=== PATIENT | female | born 1955 | race Two or more races ===

== ENCOUNTER 2017-11-27 10:07 | Outpatient (CLI) | payer OTHER | END 2017-11-27 10:08 | disposition home or self-care (01) | LOC: LAB 10:07 | DX: J11.1 Influenza due to unidentified influenza virus with other respiratory manifestations (principal); R50.9 Fever, unspecified ==

== ENCOUNTER → 2017-11-27 | Outpatient (CLI) | payer OTHER ==
[~2017-11-27] VITALS: Ht 152.4 cm; Wt 80.7 kg
[~2017-11-27] MED LIST: FLONASE16 GM NASAL; FLOVENT 220MCG7.9 GM; FLOVENT 220MCG7.9 GM IH; FLOVENT DISKU250 MCG; FLOVENT DISKU250 MCG NS; FLOVENT HFA10.6 GM IH; HYZAAR 100-121 UDTAB; HYZAAR 100-121 UDTAB PO; HYZAAR 100/25 T1 TAB PO; HYZAAR 50-12.51 EACH PO; HYZAAR 50/12.51 TAB PO; KETO10TA2 PO; LOTRISONE CREAM45 GM TP; MEDROLPACK PO; MOTRIN800 MG PO; ORPH100T PO; PERCOCET 5/3251 TAB PO; PROTONIX20 MG PO; PROTONIX40 M1; PROVENTIL HFA6.7 GM IH; SINGULAIR 10MG10 MG; SINGULAIR10 MG; SINGULAIR10 MG PO; TUSSI PRES-B L120 M1 PO; ZITHROMAX TRI-500 MG PO
== END | disposition home or self-care (01) ==
LOC: PPHC 07:18
DX: R50.9 Fever, unspecified (principal); R11.0 Nausea

== ENCOUNTER → 2017-12-18 06:28 | Outpatient (CLI) | payer OTHER ==
[~2017-12-18 06:28] MED LIST changes: +GABAPENTIN300 MG PO
== END | disposition home or self-care (01) ==
LOC: LAB 06:28
DX: E03.8 Other specified hypothyroidism (principal); E79.0 Hyperuricemia without signs of inflammatory arthritis and tophaceous disease; E11.630 Type 2 diabetes mellitus with periodontal disease; E78.00 Pure hypercholesterolemia, unspecified

== ENCOUNTER 2017-12-22 11:38 | Outpatient (CLI) | payer OTHER | END 2017-12-22 16:17 | disposition home or self-care (01) | LOC: SONOGRAMA 11:38 | DX: E04.1 Nontoxic single thyroid nodule (principal) ==

== ENCOUNTER 2018-01-14 09:14 | Outpatient (CLI) | payer OTHER | END 2018-01-14 09:25 | disposition home or self-care (01) | LOC: SONOGRAMA 09:14 | DX: E04.1 Nontoxic single thyroid nodule (principal) ==

== ENCOUNTER 2018-07-13 07:47 | Outpatient (CLI) | payer OTHER | END 2018-07-13 07:54 | disposition home or self-care (01) | LOC: LAB 07:47 | DX: I10 Essential (primary) hypertension (principal); E11.9 Type 2 diabetes mellitus without complications; Z12.11 Encounter for screening for malignant neoplasm of colon ==

== ENCOUNTER 2018-07-13 08:14 | Outpatient (CLI) | payer OTHER | END 2018-07-13 14:57 | disposition home or self-care (01) | LOC: MAMO-SONO 08:14 | DX: Z12.31 Encounter for screening mammogram for malignant neoplasm of breast (principal) ==

== ENCOUNTER 2018-11-10 08:05 | Outpatient (CLI) | payer OTHER | END 2018-11-10 08:14 | disposition home or self-care (01) | LOC: LAB 08:05 | DX: E11.9 Type 2 diabetes mellitus without complications (principal); I10 Essential (primary) hypertension; E78.4 Other hyperlipidemia ==

== ENCOUNTER 2019-02-17 10:26 | Outpatient (CLI) | payer OTHER | END 2019-02-17 16:21 | disposition home or self-care (01) | LOC: LAB 10:26 | DX: E78.49 Other hyperlipidemia (principal); I10 Essential (primary) hypertension; E03.8 Other specified hypothyroidism; Z00.00 Encounter for general adult medical examination without abnormal findings ==

== ENCOUNTER 2019-06-22 06:59 | Outpatient (CLI) | payer OTHER | END 2019-06-22 07:04 | disposition home or self-care (01) | LOC: LAB 06:59 | DX: E11.9 Type 2 diabetes mellitus without complications (principal); Z00.00 Encounter for general adult medical examination without abnormal findings; E55.9 Vitamin D deficiency, unspecified; I10 Essential (primary) hypertension ==

== ENCOUNTER → 2019-09-22 09:52 | Outpatient (CLI) | payer OTHER | END | disposition home or self-care (01) | LOC: LAB 09:52 | DX: E11.65 Type 2 diabetes mellitus with hyperglycemia (principal); E78.00 Pure hypercholesterolemia, unspecified ==

== ENCOUNTER 2019-11-14 13:19 | Outpatient (CLI) | payer OTHER | END 2019-11-14 13:24 | disposition home or self-care (01) | LOC: NUCLEAR 13:19 | DX: I11.9 Hypertensive heart disease without heart failure (principal); M15.0 Primary generalized (osteo)arthritis; M81.0 Age-related osteoporosis without current pathological fracture ==

== ENCOUNTER 2019-12-14 08:45 | Outpatient (CLI) | payer OTHER | END 2019-12-14 08:57 | disposition home or self-care (01) | LOC: MAMO-SONO 08:45 | DX: Z12.31 Encounter for screening mammogram for malignant neoplasm of breast (principal); Z87.898 Personal history of other specified conditions; C50.919 Malignant neoplasm of unspecified site of unspecified female breast; N63.10 Unspecified lump in the right breast, unspecified quadrant; N63.20 Unspecified lump in the left breast, unspecified quadrant; N64.4 Mastodynia; N60.12 Diffuse cystic mastopathy of left breast; N60.11 Diffuse cystic mastopathy of right breast; I11.9 Hypertensive heart disease without heart failure; R06.02 Shortness of breath ==

== ENCOUNTER → 2020-06-13 08:07 | Outpatient (CLI) | payer OTHER | END | disposition home or self-care (01) | LOC: LAB 08:07 | PROVIDERS: ATTEND Internal Medicine Geriatric Medicine | DX: D68.8 Other specified coagulation defects (principal); Z20.828 Contact with and (suspected) exposure to other viral communicable diseases; M17.12 Unilateral primary osteoarthritis, left knee; D50.8 Other iron deficiency anemias; E03.8 Other specified hypothyroidism; E78.2 Mixed hyperlipidemia; I11.9 Hypertensive heart disease without heart failure; E56.8 Deficiency of other vitamins; N39.0 Urinary tract infection, site not specified; Z12.11 Encounter for screening for malignant neoplasm of colon; E55.9 Vitamin D deficiency, unspecified; N19 Unspecified kidney failure; E11.9 Type 2 diabetes mellitus without complications; R80.8 Other proteinuria; C18.0 Malignant neoplasm of cecum; K92.1 Melena ==

== ENCOUNTER 2021-12-02 10:58 | Outpatient (CLI) | payer OTHER | END 2021-12-02 11:12 | disposition home or self-care (01) | LOC: MAMO-SONO 10:58 | PROVIDERS: ATTEND Internal Medicine Geriatric Medicine | DX: Z12.31 Encounter for screening mammogram for malignant neoplasm of breast (principal); C50.919 Malignant neoplasm of unspecified site of unspecified female breast; N63.0 Unspecified lump in unspecified breast; N60.12 Diffuse cystic mastopathy of left breast; N60.11 Diffuse cystic mastopathy of right breast ==

== ENCOUNTER 2021-12-18 11:38 | Outpatient (CLI) | payer OTHER | END 2021-12-18 11:45 | disposition home or self-care (01) | LOC: RAD 11:38 | PROVIDERS: ATTEND Orthopaedic Surgery | DX: M19.90 Unspecified osteoarthritis, unspecified site (principal) ==

== ENCOUNTER 2023-05-19 11:55 | Outpatient (CLI) | payer OTHER | END 2023-05-19 12:08 | disposition home or self-care (01) | LOC: LAB 11:55 | PROVIDERS: ATTEND Internal Medicine Hematology & Oncology | DX: D51.1 Vitamin B12 deficiency anemia due to selective vitamin B12 malabsorption with proteinuria (principal); D51.3 Other dietary vitamin B12 deficiency anemia; I10 Essential (primary) hypertension; E11.8 Type 2 diabetes mellitus with unspecified complications; J45.998 Other asthma; E78.2 Mixed hyperlipidemia ==

== ENCOUNTER 2023-12-28 08:32 | Outpatient (CLI) | payer OTHER | END 2023-12-28 08:34 | disposition home or self-care (01) | LOC: SONOGRAMA 08:32 | PROVIDERS: ATTEND Pathology Anatomic Pathology | DX: D34 Benign neoplasm of thyroid gland (principal); E07.89 Other specified disorders of thyroid; E06.3 Autoimmune thyroiditis ==

== ENCOUNTER 2025-06-29 12:33 | Emergency (ER) | payer OTHER ==
[~2025-06-29] VITALS: Ht 157.5 cm; Wt 86.6 kg
[2025-06-29] MEDS ORDERED: ATACAND HCT 161 EACH PO (13:21)
[2025-06-29 13:22] VITALS: BP 132/78; O2SAT 99
[2025-06-29] MEDS ORDERED: LIPOFEN50 MG PO (13:22)
[2025-06-29] MEDS ORDERED: METFORMIN HCL750 MG PO (13:22)
[2025-06-29] MEDS ORDERED: 0.9 % SODIUM CHLORIDE 1,000 ML IV STA (14:13)
[2025-06-29] MEDS ORDERED: ONDANSETRON HCL 2 MG/ML VIAL IV STA (14:14)
[2025-06-29] MEDS ORDERED: ONDANSETRON HCL 2 MG/ML VIAL ONE (14:21)
[2025-06-29 15:02] LABS: BASO % 0.2 % (0.1-1.2); EOS # 0.00 (0.04-0.54); EOS % 0.0 % (0.7-7.0); LYMPH # 1.04 (1.18-3.74); LYMPH % 11.8 % (19.3-53.1); MEAN PLATELET VOLUME 10.30 fl (9.4-12.4); MONO # 0.59 (0.24-0.82); MONO % 6.7 % (4.7-12.5); NEUT # 7.15 (1.56-6.13); NEUT % 81.0 % (34.0-71.1); RED CELL DISTRIBUTION WIDTH 13.2 % (11.6-14.4)
[2025-06-29 15:20] LABS: BUN CREA RATIO 17.0 (7.0-25.0); CREATININE SERUM 1.03 mg/dL (0.55-1.02); GFR 52.97; GLUCOSE FASTING 112.0 mg/dL (65-100); OSMOLALITY SERUM 275.0 MOSM/KG (275-295)
[2025-06-29 15:45] LABS: BAND MAN 4.0 %; LYMPHOCYTE MAN 17.0 %; MONOCYTE MAN 3.0 %; NEUTROPHILS MAN 76.0 %
[2025-06-29] MEDS ORDERED: HYOSCYAMINE SULFATE 0.125 MG TAB.SUBL ONE (15:57)
[2025-06-29] MEDS ORDERED: FAMOTIDINE/PF 20 MG/2 ML VIAL ONE (15:57)
[2025-06-29] MEDS ORDERED: FAMOTIDINE/PF 20 MG in 0.9 % SODIUM CHLORIDE 8 ML IV PUSH STA (15:59)
[2025-06-29] MEDS ORDERED: HYOSCYAMINE SULFATE 0.125 MG TAB.SUBL SL ONE (16:00)
[2025-06-29 16:18] LABS: URINE APPEARANCE Clear; URINE BILIRRUBIN Small (NEGATIVE); URINE BLOOD Trace; URINE COLOR Dark Yellow; URINE GLUCOSE Negative (NEGATIVE); URINE KETONE Trace (NEGATIVE); URINE LEUKOCYTE Trace; URINE NITRATE Positive; URINE PROTEIN 30 (NEGATIVE); URINE UROBILINOGEN 1.0 E.U./dl
[2025-06-29 16:19] LABS: URINE BACTERIA 3230.0 uL (0.0-1933); URINE EPITHELIAL CELLS 11.9 uL (0.0-38.8); URINE RBC 72.7 uL (0.0-20.8); URINE WBC 11.0 uL (0.0-23.2)
[2025-06-29 16:25] LABS: URINE CAST 0.43 uL (0.0-1.40)
[2025-06-29] MEDS ORDERED: CIPRO500 MG PO (17:20)
[2025-06-29] MEDS ORDERED: METRONIDAZOLE500 MG PO (17:20)
[2025-06-29] MEDS ORDERED: LEVSIN/SL0.125 MG SL (17:20)
[2025-06-29] MEDS ORDERED: PROBIOTIC1 EAC2 PO (17:20)
[2025-06-29] MEDS ORDERED: PEPCID AC20 MG PO (17:20)
[2025-06-29] MEDS ORDERED: KETOROLAC TROMETHAMINE 30 MG VIAL ONE (17:56)
[2025-06-29] MEDS ORDERED: KETOROLAC TROMETHAMINE 30 MG VIAL IV ONE (18:00)
== END 2025-06-29 18:46 | disposition home or self-care (01) ==
LOC: ER 12:44
PROVIDERS: Emergency Medicine
DX: K52.89 Other specified noninfective gastroenteritis and colitis (principal); R10.9 Unspecified abdominal pain; I10 Essential (primary) hypertension; E11.9 Type 2 diabetes mellitus without complications; Z79.84 Long term (current) use of oral hypoglycemic drugs; Z88.6 Allergy status to analgesic agent
CPT/HCPCS: 36415; 96365; 96366; 99282; J1885; J2405; J3490; J7030

== ENCOUNTER 2025-06-30 13:19 | Inpatient (IN) | payer OTHER ==
[~2025-06-30] VITALS: Ht 157.5 cm; Wt 88.0 kg
[~2025-06-30 13:19] MED LIST changes: +ATACAND HCT 161 EACH PO; +CIPRO500 MG PO; +LEVSIN/SL0.125 MG SL; +LIPOFEN50 MG PO; +METFORMIN HCL750 MG PO; +METRONIDAZOLE500 MG PO; +PEPCID AC20 MG PO; +PROBIOTIC1 EAC2 PO
--- NOTE | 2025-06-30 13:27 | NUR ---
PACIENTE MASCULINO, S/V EN PARAMETROS NORMALES, C/C CONVULSIONES, SE UBICA EN CRITICO 1, SE ADMINISTRA MEDICAMENTO POR ORDEN MEDICA, SE MANTIENE EN OBSERCION AREA CRITICO.
--- NOTE | 2025-06-30 13:42 | NUR ---
PTE REFIERE DOLOR ABDOMINAL DIARREAS Y NAUSEAS DESDE RUSH. SE LE YONATHAN S/V Y SE AOMODA EN LISETH .
[2025-06-30] MEDS ORDERED: FAMOTIDINE/PF 20 MG/2 ML VIAL IV ONE (15:00)
[2025-06-30] MEDS ORDERED: 0.9 % SODIUM CHLORIDE 500 ML IV ONE (15:00)
[2025-06-30] MEDS ORDERED: KETOROLAC TROMETHAMINE 30 MG VIAL IV ONE (15:00)
[2025-06-30] MEDS ORDERED: LACTOBACILLUS ACIDOPHILUS 1 CAP CAP PO ONE (15:00)
[2025-06-30] MEDS ORDERED: ONDANSETRON HCL 2 MG/ML VIAL IV ONE (15:00)
--- NOTE | 2025-06-30 15:36 | NUR ---
PTE ALERTA Y ORIENTADA X3. SE REALIZAN MUESTRAS DE LAB KAYLYNN ORDEN MEDICA Y BAJO MEDIDAS ASEPTICAS. SE REALIZA VENOPUNCION Y SE ADMNISTRA MEDICAMENTO KAYLYNN ORDEN MEDICA POR TERI DEL TORO.
[2025-06-30 16:00] LABS: BASO % 0.3 % (0.1-1.2); EOS # 0.01 (0.04-0.54); EOS % 0.1 % (0.7-7.0); LYMPH # 1.06 (1.18-3.74); LYMPH % 15.0 % (19.3-53.1); MEAN PLATELET VOLUME 10.60 fl (9.4-12.4); MONO # 0.60 (0.24-0.82); MONO % 8.5 % (4.7-12.5); NEUT # 5.32 (1.56-6.13); NEUT % 75.5 % (34.0-71.1); RED CELL DISTRIBUTION WIDTH 13.0 % (11.6-14.4)
[2025-06-30 16:03] LABS: INR 1.19
[2025-06-30 16:08] LABS: ALT/SGPT 28.0 U/L (12-78); AST/SGOT 66.0 U/L (15-37); BILIRUBIN TOTAL 0.41 mg/dL (0.3-1.2); BUN CREA RATIO 20.0 (7.0-25.0); CREATININE SERUM 1.28 mg/dL (0.55-1.02); GFR 41.22; GLOBULINA 4.8 G/DL (2.4-3.5); GLUCOSE FASTING 99.0 mg/dL (65-100); OSMOLALITY SERUM 277.0 MOSM/KG (275-295)
[2025-06-30 19:09] LABS: URINE APPEARANCE Clear; URINE BILIRRUBIN Small (NEGATIVE); URINE BLOOD Negative; URINE COLOR Dark Yellow; URINE GLUCOSE Negative (NEGATIVE); URINE KETONE Trace (NEGATIVE); URINE LEUKOCYTE Small; URINE NITRATE Negative; URINE PROTEIN Trace (NEGATIVE); URINE UROBILINOGEN 1.0 E.U./dl
[2025-06-30 19:13] LABS: URINE BACTERIA 71.9 uL (0.0-1933); URINE CAST 1.61 uL (0.0-1.40); URINE EPITHELIAL CELLS 54.9 uL (0.0-38.8); URINE RBC 57.4 uL (0.0-20.8); URINE WBC 53.0 uL (0.0-23.2)
[2025-06-30 19:38] LABS: URINE MUCUS SCANT
[2025-06-30 19:39] LABS: TYPE CELLS SQUAMOUS
[2025-06-30] MEDS ORDERED: CIPROFLOXACIN IN 5 % DEXTROSE 200 ML IV SCH (22:59)
[2025-06-30] MEDS ORDERED: METRONIDAZOLE/SODIUM CHLORIDE 500 MG/100 ML PIGGYBACK IV ONE (23:00)
[2025-06-30] MEDS ORDERED: ONDANSETRON HCL 4 MG in 0.9 % SODIUM CHLORIDE 50 ML IV PRN (23:00)
[2025-06-30] MEDS ORDERED: CIPROFLOXACIN IN 5 % DEXTROSE 400 MG/200 ML PIGGYBAG IV ONE (23:00)
[2025-06-30] MEDS ORDERED: 0.9 % SODIUM CHLORIDE 1,000 ML IV SCH (23:00)
[2025-06-30] MEDS ORDERED: MORPHINE SULFATE 2 MG/ML CARTRIDGE IV PRN (23:15)
[2025-06-30] MEDS ORDERED: DEXTROSE 50 % IN WATER 0.5 G/ML DISP.SYRIN IV PRN (23:15)
[2025-06-30] MEDS ORDERED: INSULIN LISPRO 1,000 UNIT/10 ML UNITS SUBCUTANEO PRN (23:15)
[2025-06-30] MEDS ORDERED: CANDESARTAN CILEXETIL 16 MG TABLET PO SCH (23:20)
[2025-07-01 06:49] VITALS: BP 139/63; O2SAT 98
[2025-07-01 07:54] LABS: ALT/SGPT 27.0 U/L (12-78); AST/SGOT 66.0 U/L (15-37); BILIRUBIN TOTAL 0.32 mg/dL (0.3-1.2); BUN CREA RATIO 24.0 (7.0-25.0); CREATININE SERUM 1.2 mg/dL (0.55-1.02); GFR 44.41; GLOBULINA 3.7 G/DL (2.4-3.5); GLUCOSE FASTING 86.0 mg/dL (65-100); OSMOLALITY SERUM 281.0 MOSM/KG (275-295)
[2025-07-01 09:30] VITALS: BP 129/65
[2025-07-01] MEDS ORDERED: POTASSIUM CHLORIDE IN WATER 100 ML IV NR (16:00)
[2025-07-01] MEDS ORDERED: HYOSCYAMINE SULFATE 0.125 MG TAB.SUBL SL PRN (16:30)
[2025-07-01 18:05] VITALS: BP 152/84; O2SAT 97
[2025-07-02 01:48] VITALS: BP 158/75; O2SAT 98
[2025-07-02 07:55] VITALS: BP 166/79
[2025-07-02] MEDS ORDERED: CIPROFLOXACIN IN 5 % DEXTROSE 400 MG/200 ML PIGGYBAG IV SCH (09:00)
[2025-07-02] MEDS ORDERED: FAMOTIDINE/PF 20 MG/2 ML VIAL IV NR (12:00)
[2025-07-02] MEDS ORDERED: LACTOBACILLUS ACIDOPHILUS 1 CAP CAP PO SCH (18:08)
[2025-07-02 18:11] VITALS: BP 160/78; O2SAT 100
[2025-07-02] MEDS ORDERED: FAMOTIDINE/PF 20 MG/2 ML VIAL IV SCH (21:00)
[2025-07-03 01:57] VITALS: BP 164/78; O2SAT 99
[2025-07-03 06:16] LABS: BASO % 0.3 % (0.1-1.2); EOS # 0.21 (0.04-0.54); EOS % 5.5 % (0.7-7.0); LYMPH # 1.27 (1.18-3.74); LYMPH % 33.1 % (19.3-53.1); MEAN PLATELET VOLUME 10.80 fl (9.4-12.4); MONO # 0.50 (0.24-0.82); NEUT # 1.76 (1.56-6.13); NEUT % 45.8 % (34.0-71.1); RED CELL DISTRIBUTION WIDTH 13.1 % (11.6-14.4)
[2025-07-03 06:35] LABS: MONO % 13.0 % (4.7-12.5)
[2025-07-03 06:42] LABS: ERYTHROCYTE SEDIMENTATION RATE 81 mm/hr (0-30)
[2025-07-03 06:59] LABS: ALT/SGPT 25.0 U/L (12-78); AST/SGOT 43.0 U/L (15-37); BILIRUBIN TOTAL 0.17 mg/dL (0.3-1.2); BUN CREA RATIO 15.0 (7.0-25.0); CREATININE SERUM 0.61 mg/dL (0.55-1.02); GFR 96.96; GLOBULINA 3.3 G/DL (2.4-3.5); GLUCOSE FASTING 97.0 mg/dL (65-100); OSMOLALITY SERUM 285.0 MOSM/KG (275-295)
[2025-07-03 08:00] VITALS: BP 155/80
[2025-07-03] MEDS ORDERED: POTASSIUM CHLORIDE 20MEQ/100ML H2O PB IV NR (12:15)
[2025-07-03] MEDS ORDERED: PEPCID AC20 MG PO (14:43)
[2025-07-03] MEDS ORDERED: PROTEINEX-18 LI30 ML PO (14:43)
[2025-07-03] MEDS ORDERED: PROBIOTIC1 EAC2 PO (14:43)
[2025-07-03] MEDS ORDERED: ATACAND HCT 161 EACH PO (14:43)
[2025-07-03] MEDS ORDERED: SINGULAIR10 MG PO (14:43)
[2025-07-03] MEDS ORDERED: POTASSIUM CHLORIDE 8 MEQ TABLET PO STA (14:59)
[2025-07-03] MEDS ORDERED: AMINO ACIDS/PROTEIN HYDROLYS 30 ML BLIST.PACK PO SCH (17:00)
== END 2025-07-03 16:47 | disposition home or self-care (01) | DRG 392 ==
LOC: ER 13:19 → MEDJ 23:31
PROVIDERS: General Practice; Internal Medicine; ADMIT Internal Medicine Geriatric Medicine; ATTEND Internal Medicine Geriatric Medicine
PROC: BW21ZZZ Computerized Tomography (CT Scan) of Abdomen and Pelvis (ICD-10-PCS; principal; 2025-06-30)
PROC: BW40ZZZ Ultrasonography of Abdomen (ICD-10-PCS; 2025-06-30)
DX: K52.9 Noninfective gastroenteritis and colitis, unspecified (principal); R11.2 Nausea with vomiting, unspecified; I10 Essential (primary) hypertension; E87.6 Hypokalemia; E86.0 Dehydration; J45.909 Unspecified asthma, uncomplicated; E11.9 Type 2 diabetes mellitus without complications